=== PATIENT | female | born 1930 | race African-American/Black ===

== ENCOUNTER 2017-07-22 13:00 | Day surgery (SDC) | payer MEDICARE, BC ==
[~2017-07-22] VITALS: Ht 157.5 cm; Wt 61.2 kg
--- NOTE | ~2017-07-22 | EGD ---
EGD REPORT [facility] [address] [address] NAME: JANEL BARRERA : [birth year] STATUS : REG [facility] PAT#: [id number] AGE: 86 ADM/REG DATE : 07/22/17 MR#: [id number] REPORT SERV DATE: 07/22/17 DICTATED BY: GIOVANY CHAN DATE: 07/22/17 REPORT STATUS : Draft [facility]: [facility] DATE: 07/22/17 [facility] Patient Name: Janel Barrera Date of : 1930 Attending MD: GIOVANY CHAN MD Procedure Date No Time: 07/22/2017 Procedure: Colonoscopy Indications: Hematochezia Referring MD: GLORY YOUNG MD, KHAI MANZO Medicines: Propofol per Anesthesia Complications: No immediate complications. Estimated blood loss: None. Procedure: Pre-Anesthesia Assessment: - After reviewing the risks and benefits, the patient was deemed in satisfactory condition to undergo the procedure. - Prior to the procedure, a History and Physical was performed, and patient medications and allergies were reviewed. The patient's tolerance of previous anesthesia was also reviewed. The risks and benefits of the procedure and the sedation options and risks were discussed with the patient. All questions were answered, and informed consent was obtained. Prior Anticoagulants: The patient has taken Plavix (clopidogrel), last dose was 3 days prior to procedure. ASA Grade Assessment: III - A patient with severe systemic disease. After reviewing the risks and benefits, the patient was deemed in satisfactory condition to undergo the procedure. After I obtained informed consent, the scope was passed under direct vision. Throughout the procedure, the patient's blood pressure, pulse, and oxygen saturations were monitored continuously. The CF [id number] [id number] was introduced through the anus and advanced to a fixed segment in the sigmoid colon but no further so it was withdrawn. The PCF [id number] was introduced through the anus and advanced to the cecum, identified by appendiceal orifice and ileocecal valve. The colonoscopy was performed with difficulty due to restricted mobility of the colon, significant looping and a tortuous colon. Successful completion of the procedure was aided by withdrawing the scope and replacing with the pediatric colonoscope, straightening and shortening the scope to obtain bowel loop reduction and applying abdominal pressure. The ileocecal valve and appendiceal orifice were photographed. The patient tolerated the procedure EGD REPORT [address] [place]. [address] NAME: JANEL BARRERA : [birth year] STATUS : REG [facility] PAT#: [id number] AGE: 86 ADM/REG DATE : 07/22/17 MR#: [id number] REPORT SERV DATE: 07/22/17 DICTATED BY: GIOVANY CHAN DATE: 07/22/17 REPORT STATUS : Draft TRANSCRIBED BY: [facility] DATE: 07/22/17 well. The quality of the bowel preparation was adequate. The bowel preparation used was polyethylene glycol (PEG). Scope withdrawal time was almost 8 minutes. Findings: The perianal and digital rectal examinations were normal. Pertinent negatives include normal sphincter tone. Non-bleeding internal hemorrhoids were found during retroflexion and were medium-sized and Grade I (internal hemorrhoids that do not prolapse). Multiple small and large-mouthed diverticula were found in the sigmoid colon. There was narrowing of the colon in association with the diverticular openings and marked fixation and angulation. In order to traverse this area the standard scope was withdrawn and a pediatric colonoscope was used. Upon withdrawal and examination, there was evidence of some trauma and submucosal hemorrhage but no transmural injury. Diffuse melanosis was found in the entire colon. The exam was otherwise without abnormality. Impression: - Non-bleeding internal hemorrhoids. - Severe diverticulosis in the sigmoid colon. There was narrowing of the colon in association with the diverticular opening. The colon was markedly fixed and tortuous here. - Melanosis in the colon. - The examination was otherwise normal. - Recent scant outlet type bleeding on Plavix with normal Hgb. No GI contraindication to continued Plavix therapy. Recommendation: - Discharge patient to home (ambulatory). - High fiber diet indefinitely. - Continue present medications. - Resume Plavix (clopidogrel) at prior dose tomorrow. - Repeat colonoscopy will not be performed due to advanced age. - Return to GI clinic PRN. - Patient has a contact number available for emergencies. The signs and symptoms of potential delayed complications were discussed with the patient. Return to normal activities tomorrow. Written discharge instructions were provided to the patient. Procedure Code(s): --- Professional --- 76430, Colonoscopy, flexible, proximal to splenic flexure; diagnostic, with or without collection of specimen(s) by brushing or washing, with or without EGD REPORT [address] [place]. [address] NAME: JANEL BARRERA : [birth year] STATUS : REG [facility] PAT#: [id number] AGE: 86 ADM/REG DATE : 07/22/17 MR#: [id number] REPORT SERV DATE: 07/22/17 DICTATED BY: GIOVANY CHAN DATE: 07/22/17 REPORT STATUS : Draft TRANSCRIBED BY: [facility] DATE: 07/22/17 colon decompression (separate procedure) Diagnosis Code(s): --- Professional --- K64.0, First degree hemorrhoids K57.30, Diverticulosis of large intestine without perforation or abscess without bleeding K63.89, Other specified diseases of intestine K92.1, Melena CPT copyright 2013 [employer]. All rights reserved. The codes documented in this report are preliminary and upon client delivery specialist review may be revised to meet current compliance requirements. GIOVANY CHAN MD 07/22/2017 3:31 PM This report has been signed electronically. Number of Addenda: 0 Note Initiated On: 07/22/2017 2:01 PM Scope Withdrawal Time 0 hours 8 minutes 8 seconds [id number] [place] [id number]
[~2017-07-22 13:00] MED LIST: ASAB PO; CO Q-10100 MG PO; COREG3 PO; GLUCOTROL5 PO; LIPITOR10 PO; MAX25 PO; MONO20 PO; PLAVIX PO; PRILO PO
== END 2017-07-22 23:59 | disposition home or self-care (01) ==
LOC: DMU 13:00
PROVIDERS: Internal Medicine Gastroenterology
PROC: 0DJD8ZZ Inspection of Lower Intestinal Tract, Via Natural or Artificial Opening Endoscopic (ICD-10-PCS; principal; 2017-07-22 14:30)
DX: K64.0 First degree hemorrhoids (principal); K57.30 Diverticulosis of large intestine without perforation or abscess without bleeding; K63.89 Other specified diseases of intestine; I10 Essential (primary) hypertension; E11.9 Type 2 diabetes mellitus without complications; Z86.73 Personal history of transient ischemic attack (TIA), and cerebral infarction without residual deficits; Z87.891 Personal history of nicotine dependence; Z95.1 Presence of aortocoronary bypass graft; Z79.82 Long term (current) use of aspirin; Z79.02 Long term (current) use of antithrombotics/antiplatelets; Z79.899 Other long term (current) drug therapy; Z88.8 Allergy status to other drugs, medicaments and biological substances; Z90.710 Acquired absence of both cervix and uterus; Z98.41 Cataract extraction status, right eye; Z98.42 Cataract extraction status, left eye
CPT/HCPCS: 82962